=== PATIENT | female | born 1955 | race Caucasian/White ===

== ENCOUNTER 2017-05-13 19:11 | Emergency (ER) | payer OTHER, MEDICARE ==
[2017-05-13 19:16] VITALS: BP 160/73
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
--- NOTE | 2017-05-14 18:00 | CR ---
Chest and left ribs: Frontal view of the chest was obtained as well as 3 views of the left ribs. Comparison: No previous chest x-ray. Heart size and mediastinum are within normal limits. Lungs are clear with no acute infiltrates. No discrete left-sided rib abnormality is appreciated. Impression: 1. Nothing acute is seen on frontal chest x-ray. No discrete left-sided rib abnormality is seen. Nondisplaced fracture could be missed. Diagnostic code #2
== END 2017-05-13 20:40 | disposition home or self-care (01) ==
LOC: JD.ED 19:11
DX: R07.89 Other chest pain (principal); Z88.2 Allergy status to sulfonamides; V43.52XA Car driver injured in collision with other type car in traffic accident, initial encounter
CPT/HCPCS: 71101-26-LT; 71101-LT; 99283; 99285